=== PATIENT | female | born 1950 | race Caucasian/White ===

== ENCOUNTER 2021-01-27 10:22 | Inpatient (IN) ==
[2021-01-27] MEDS ORDERED: ONDANSETRON INJ 2 MG/ML 2 ML VIAL IV STA (10:30)
[2021-01-27] MEDS ORDERED: SODIUM CHLORIDE 0.9% 500 ML IV STA (10:30)
--- NOTE | 2021-01-27 10:36 | Emergency Department Note ---
Impression & Plan Tibial plateau fracture, left, Fall, Muscle tear, Hematoma of muscle ED Provider Note NAME: JASMEET NOLASCO AGE: 70 SEX: F : 1950 ARRIVES VIA: Ambulance INFORMANT: Patient, ED PROVIDER(S): Joseph Pearson DO CHIEF COMPLAINT: Knee pain HPI: The patient is a 70-year-old female who presents emergency department by ambulance for an evaluation of knee pain. The patient had a fall yesterday where she twisted her left knee under her body. She had no bony injury noted on radiographic studies and was able to go home. She has been trying to ambulate with a walker but this morning when she awoke swelling was significantly worsened and she had to call 911 because she was completely unable to bear weight. The patient did take the pain medication she was prescribed. She states the pain is moderate to severe. She denies any other injury. She did not strike her head. She currently only takes aspirin and no other blood thinners. The patient states otherwise she has been very compliant with her other outpatient medications. She denies any headache or back pain. She denies having any numbness in the leg. She states the swelling and ecchymosis have increased significantly since the injury. ROS: See above HPI for pertinent positives & negatives. A total of 10 systems reviewed and were otherwise negative. PAST MEDICAL HISTORY: See Below PAST SURGICAL HISTORY: See Below FAMILY HISTORY: See Below SOCIAL HISTORY: See Below HOME MEDICATIONS: See Below ALLERGIES: See Below VITALS: See Below PHYSICAL EXAMINATION: GENERAL: The patient is awake and alert. The patient is very anxious appearing appears to be uncomfortable. EYES: The conjunctivae are clear. The pupils are round and reactive. EARS, NOSE, MOUTH AND THROAT: The nose is without any evidence of any deformity. NECK: The neck is nontender and supple. RESPIRATORY: Normal respiratory effort is noted there is no evidence of wheezing rhonchi or rales CARDIOVASCULAR: Regular rate and rhythm noted there no murmurs rubs or gallops normal S1 normal S2. GASTROINTESTINAL: The abdomen is soft. Abdomen is nontender. MUSCULOSKELETAL/EXTREMITIES: There is significant ecchymosis and swelling on the medial aspect of the left knee. The patient has no instability to anterior or posterior drawer testing but there is significant pain with any range of motion testing of the knee. SKIN: There is no obvious evidence of any rash. No significant pedal edema was noted. Pulses are symmetric in both feet. NEUROLOGIC: Patient is awake alert and oriented x3. MEDICAL DECISION MAKING: The patient is a 70-year-old female who presented to the emergency department for an evaluation of leg pain. The patient was in our facility yesterday. I initially saw the patient and at that time she had x-rays as well as a CT of the knee that did not show any acute bony injury. She returns today with worsening symptoms and swelling. On my exam today the patient has very severe swelling of the knee with a large hematoma. The patient had repeat imaging which did show a tibial plateau fracture as well as a large muscle tear. The patient is not able to ambulate at this time. I discussed her condition with the on-call unassigned orthopedic group as well as the [facility]. They will evaluate the patient for further management and disposition. This does not appear to be surgical at this time but she may require further inpatient management as well as placement for rehab. Triage Nursing notes reviewed. Prior medical records reviewed Vital Signs: reviewed and remarkable for no significant abnormalities Differential diagnosis: Fracture, subluxation, dislocation, contusion, ligamentous injury, neurovascular, compartment syndrome, rhabdomyolysis, as well as other patho logies. ER treatment provided: See below Diagnostics interpreted by me: ECG: none Laboratory studies: As stated above and show below. Imaging studies: See below Consultation(s): 1235: I discussed his case with Dr. Andersen who is on-call for orthopedics. 1300: I discussed this case with Marcela who is on-call for the [facility] hospitalist group. They will evaluate the patient in the emergency department. Past Med/Surg History Medical History (Updated 01/27/21 @ 16:13 by Joseph Pearson DO) Anxiety CKD (chronic kidney disease), stage III Depression HLD (hyperlipidemia) Hypertension LVH (left ventricular hypertrophy) Surgical History History of cholecystectomy Family History (Updated 01/27/21 @ 14:53 by Chanel Yang PA-C) Sister Ovarian cancer Father Hypertension Social History (Updated 01/27/21 @ 14:53 by Chanel Yang PA-C) Smoking Status: Never smoker Hx Alcohol Use: No Hx Substance Use: No Preferred Language: Slovak Feels Safe at Home: Yes Allergies Allergies Allergy/AdvReac Type Severity Reaction Status Date / Time No Known Allergies Allergy Verified 01/27/21 10:58 Home Meds Home Medications Medication Instructions Recorded Confirmed aspirin 81 mg tablet,delayed 81 mg PO QAM 02/07/19 01/27/21 release atenolol 25 mg tablet 25 mg PO QAM 02/07/19 01/27/21 niacin 500 mg tablet,extended 500 mg PO HS 02/07/19 01/27/21 release amlodipine 10 mg tablet 10 mg PO DAILY 01/27/21 01/27/21 atorvastatin 40 mg tablet 40 mg PO PM 01/27/21 01/27/21 diclofenac sodium 1 % topical gel 4 g TOPICAL QID PRN 01/27/21 01/27/21 lorazepam 0.5 mg tablet 0.5 mg PO TID PRN 01/27/21 01/27/21 pantoprazole 20 mg tablet,delayed 20 mg PO DAILY 01/27/21 01/27/21 release sertraline 50 mg tablet 50 mg PO DAILY 01/27/21 01/27/21 Previous Rx's Medication Instructions Recorded oxycodone 5 mg tablet 5 mg PO Q6H PRN #20 tab 01/26/21 Results & Data (ED) Vital Signs Vital Signs - 24 hr 01/27/21 10:28 01/27/21 10:30 01/27/21 11:00 Temperature 37.1 C Temperature Source Oral Pulse Rate 71 76 67 Pulse Rate from SpO2 Sensor 70 68 Pulse Rhythm Regular Pulse Strength Normal Respiratory Rate 21 23 26 H Respiratory Effort / Characteristics Non-Labored Spontaneous Respiratory Depth Normal Respiratory Pattern Regular Blood Pressure 151/105 H 151/105 H 119/88 Blood Pressure Mean 120 120 98 Blood Pressure Position Lying Pulse Oximetry 95 95 94 Oxygen Delivery Method Room Air Sepsis Recent Fever Within 48 Hours No Sepsis New/Unexplained Change in Mental Status N/A Sepsis Action Taken by Nursing No Action Required 01/27/21 11:30 01/27/21 12:00 01/27/21 12:30 Temperature Temperature Source Pulse Rate 69 69 66 Pulse Rate from SpO2 Sensor 69 70 66 Pulse Rhythm Pulse Strength Respiratory Rate 21 19 19 Respiratory Effort / Characteristics Respiratory Depth Respiratory Pattern Blood Pressure 126/57 L 146/80 H 121/71 Blood Pressure Mean 80 102 87 Blood Pressure Position Pulse Oximetry 94 94 94 Oxygen Delivery Method Sepsis Recent Fever Within 48 Hours Sepsis New/Unexplained Change in Mental Status Sepsis Action Taken by Nursing 01/27/21 13:01 01/27/21 13:31 01/27/21 14:00 Temperature Temperature Source Pulse Rate 66 66 74 Pulse Rate from SpO2 Sensor 67 59 L 73 Pulse Rhythm Pulse Strength Respiratory Rate 19 19 19 Respiratory Effort / Characteristics Respiratory Depth Respiratory Pattern Blood Pressure 102/35 L 135/81 121/74 Blood Pressure Mean 57 99 89 Blood Pressure Position Pulse Oximetry 93 90 94 Oxygen Delivery Method Sepsis Recent Fever Within 48 Hours Sepsis New/Unexplained Change in Mental Status Sepsis Action Taken by Nursing 01/27/21 14:30 Temperature Temperature Source Pulse Rate 82 Pulse Rate from SpO2 Sensor 83 Pulse Rhythm Pulse Strength Respiratory Rate 19 Respiratory Effort / Characteristics Respiratory Depth Respiratory Pattern Blood Pressure 140/83 Blood Pressure Mean 102 Blood Pressure Position Pulse Oximetry 93 Oxygen Delivery Method Sepsis Recent Fever Within 48 Hours Sepsis New/Unexplained Change in Mental Status Sepsis Action Taken by [facility] Medications Current Medication List: was personally reviewed by me Laboratory Data Attestation: I reviewed the patient's lab results. Result diagrams: 01/27/21 10:45 01/27/21 10:45 Lab Results 01/27/21 01/27/21 01/27/21 Range/Units 10:45 10:45 10:51 WBC 7.83 (4.8-10.8) K/uL RBC 4.63 (4.2-5.4) M/uL Hgb 13.4 (12.0-16.0) g/dL POC Hgb 13.9 (12.0-16.0) g/dl Hct 41.0 (37-47) % POC Hct 41 (37-47) % MCV 88.6 (80-100) fL MCH 28.9 (25-34) pg MCHC 32.7 (32-36) g/dL RDW Std Deviation 45.4 (36.4-46.3) fL RDW Coeff of Jan 13.9 (11.5-14.5) % Plt Count 237 (130-400) K/uL MPV 9.6 (7.4-10.4) fL Immature Gran % (Auto) 0.3 % Neut % (Auto) 64.4 % Lymph % (Auto) 25.3 % [place] % (Auto) 7.4 % Eos % (Auto) 2.3 % Baso % (Auto) 0.3 % Neut # (Auto) 5.05 (1.4-6.5) K/uL Lymph # (Auto) 1.98 (1.2-3.4) K/uL [place] # (Auto) 0.58 (0.11-0.59) K/uL Eos # (Auto) 0.18 (0-0.5) K/uL Baso # (Auto) 0.02 (0-0.2) K/uL Immature Gran # (Auto) 0.02 (0.00-0.02) K/uL POC Sodium 140 (135-144) mmol/L Sodium 138 (136-145) mmol/L POC Potassium 4.0 (3.3-5.0) mmol/L Potassium (3.5-5.1) mmol/L POC Chloride 106 (101-112) mmol/L Chloride 108 H (98-107) mmol/L Carbon Dioxide 23 (21-32) mmol/L POC Total CO2 23 L (24-31) mmol/L Anion Gap 7.0 (3-11) POC Anion Gap 15.0 L (16-25) mmol/L POC BUN 16 (7-18) mg/dl BUN 15 (7-18) mg/dl Creatinine 1.00 (0.6-1.2) mg/dl POC Creatinine 0.9 (0.6-1.3) mg/dl Est Cr Clr Drug Dosing Not Reportable Est GFR ( Amer) 67.0 ml/min Est GFR (Non-Af Amer) 57.8 ml/min BUN/Creatinine Ratio 14.6 (10-20) Glucose 108 H (70-99) mg/dl POC Glucose (other) 108 H (70-99) mg/dl Calcium 9.2 (8.5-10.1) mg/dl POC Ioniz Calcium Tara 1.12 (1.12-1.32) mmol/l Total Bilirubin 0.9 (0.2-1) mg/dl AST (15-37) U/L ALT 26 (12-78) U/L Alkaline Phosphatase 124 H (45-117) U/L Total Protein 7.9 (6.4-8.2) gm/dl Albumin 3.8 (3.4-5.0) gm/dl Globulin 4.1 H (2.5-4.0) gm/dl Albumin/Globulin Ratio 0.9 (0.9-2) Lipase 118 (73-393) U/L COVID-19 Eval Order SARS-CoV-2 (PCR) (Negative) 01/27/21 01/27/21 Range/Units 11:36 11:36 WBC (4.8-10.8) K/uL RBC (4.2-5.4) M/uL Hgb (12.0-16.0) g/dL POC Hgb (12.0-16.0) g/dl Hct (37-47) % POC Hct (37-47) % MCV (80-100) fL MCH (25-34) pg MCHC (32-36) g/dL RDW Std Deviation (36.4-46.3) fL RDW Coeff of Jan (11.5-14.5) % Plt Count (130-400) K/uL MPV (7.4-10.4) fL Immature Gran % (Auto) % Neut % (Auto) % Lymph % (Auto) % [place] % (Auto) % Eos % (Auto) % Baso % (Auto) % Neut # (Auto) (1.4-6.5) K/uL Lymph # (Auto) (1.2-3.4) K/uL [place] # (Auto) (0.11-0.59) K/uL Eos # (Auto) (0-0.5) K/uL Baso # (Auto) (0-0.2) K/uL Immature Gran # (Auto) (0.00-0.02) K/uL POC Sodium (135-144) mmol/L Sodium (136-145) mmol/L POC Potassium (3.3-5.0) mmol/L Potassium (3.5-5.1) mmol/L POC Chloride (101-112) mmol/L Chloride (98-107) mmol/L Carbon Dioxide (21-32) mmol/L POC Total CO2 (24-31) mmol/L Anion Gap (3-11) POC Anion Gap (16-25) mmol/L POC BUN (7-18) mg/dl BUN (7-18) mg/dl Creatinine (0.6-1.2) mg/dl POC Creatinine (0.6-1.3) mg/dl Est Cr Clr Drug Dosing Est GFR ( Amer) ml/min Est GFR (Non-Af Amer) ml/min BUN/Creatinine Ratio (10-20) Glucose (70-99) mg/dl POC Glucose (other) (70-99) mg/dl Calcium (8.5-10.1) mg/dl POC Ioniz Calcium Tara (1.12-1.32) mmol/l Total Bilirubin (0.2-1) mg/dl AST (15-37) U/L ALT (12-78) U/L Alkaline Phosphatase (45-117) U/L Total Protein (6.4-8.2) gm/dl Albumin (3.4-5.0) gm/dl Globulin (2.5-4.0) gm/dl Albumin/Globulin Ratio (0.9-2) Lipase (73-393) U/L COVID-19 Eval Order Covid19 at [facility] SARS-CoV-2 (PCR) POSITIVE A* (Negative) Administered Medications Morphine Sulfate (Morphine Sulfate 4 Mg/Ml 1 Ml Carp\Vial) 4 mg IV Q15M PRN PRN Reason: Pain Stop: 02/10/21 10:29 Last Admin: 01/27/21 15:31 Dose: 4 mg Documented by: [id number] Admin: 01/27/21 11:05 Dose: 4 mg Documented by: [id number] Discontinued Medications Sodium Chloride (Nss) 500 mls @ 999 mls/hr IV .Q31M STA Stop: 01/27/21 11:00 Last Infusion: 01/27/21 12:23 Dose: 0 mls/hr Documented by: [id number] Admin: 01/27/21 11:05 Dose: 999 mls/hr Documented by: [id number] Ioversol (Optiray 320 125ml) 120 ml IV ONCE ONE Stop: 01/27/21 11:21 Last Admin: 01/27/21 11:20 Dose: 120 ml Documented by: [id number] Ondansetron HCl (Ondansetron Inj 2 Mg/Ml 2 Ml Vial) 4 mg IV NOW STA Stop: 01/27/21 10:31 Last Admin: 01/27/21 11:05 Dose: 4 mg Documented by: [id number] Imaging Data Radiologist's Impression: Lower Extremity CTA 01/27/21 10:[address] angiogram HISTORY: Left knee injury, w contrast only TECHNIQUE: Multiaxial CT images of the left lower extremity from the mid thigh through the mid left lower leg were performed following the intravenous administration of contrast to evaluate the major arterial structures. Maximal intensity projection images were also obtained. COMPARISON STUDY: Left knee CT 01/26/2021. FINDINGS: There is a subtle slightly depressed fracture within the posterior lip of the lateral tibial plateau. This demonstrates 1 mm of depression. This is best seen on axial image 242. The visualized femur, patella, and fibula are intact. The lateral tibial plateau fracture likely accounts for the small lipohemarthrosis. There is subcutaneous edema seen within the anterior knee with a probable ill-defined soft tissue contusion/hematoma within the anteromedial aspect of the knee. This measures approximately 5 cm in size. The distal com ponent of the vastus medialis muscle appears to contain intramuscular hematoma and is ill-defined with interdigitating fat. Therefore, this suggests high-grade intramuscular tear at the distal vastus medialis. However, the quadriceps tendon appears intact. The distal superficial femoral artery, popliteal artery, and visualized calf arteries are widely patent. No dissection or arterial extravasation to suggest a vascular injury. IMPRESSION: 1. Subtle slightly depressed fracture within the posterior lip of the lateral tibial plateau. 2. This likely accounts for the small lipohemarthrosis. 3. The distal component of the vastus medialis muscle appears to contain intramuscular hematoma and is ill-defined with interdigitating fat. Therefore, this suggests high-grade intramuscular tear/injury at the distal vastus medi suhail. However, the quadriceps tendon appears intact. 4. There is a surrounding soft tissue hematoma at the distal vastus medialis. 5. No evidence for a vascular injury. ACT 112: Negative or not required by law. Electronically signed by: Cayden Ramirez M.D. 01/27/2021 12:22 PM Discharge Plan Visit Data Chief Complaint: Knee Injury/Pain Stated Complaint: KNEE INJURY ED Provider: Joseph Pearson Discharge Problem: Tibial plateau fracture, left, Fall, Muscle tear, Hematoma of muscle Patient Disposition: Admitted As Inpatient Forms Stand Alone Forms: [facility] Prescriptions Prescriptions: No Action atenolol 25 mg tablet 25 mg PO QAM RF: 0 aspirin 81 mg Tablet,Delayed Release (Dr/Ec) 81 mg PO QAM RF: 0 niacin 500 mg Tablet Extended Release 500 mg PO HS RF: 0 oxycodone 5 mg tablet 5 mg PO Q6H PRN (Reason: pain) Qty: 20 RF: 0 atorvastatin 40 mg tablet 40 mg PO PM RF: 0 pantoprazole 20 mg tablet,delayed release (DR/EC) 20 mg PO DAILY RF: 0 lorazepam 0.5 mg tablet 0.5 mg PO TID PRN (Reason: Anxiety) RF: 0 amlodipine 10 mg tablet 10 mg PO DAILY RF: 0 sertraline 50 mg tablet 50 mg PO DAILY RF: 0 diclofenac sodium 1 % gel 4 g TOPICAL QID PRN (Reason: Pain) RF: 0 Referrals Referrals: Karley Sutherland DO [Primary Care Provider] -
[2021-01-27 10:56] LABS: Basophils # (auto) 0.02 K/uL (0-0.2); Basophils % (auto) 0.3 %; Eosinophils # (auto) 0.18 K/uL (0-0.5); Eosinophils % (auto) 2.3 %; Hemoglobin 13.4 g/dL (12.0-16.0); Immature Granulocytes # (auto) 0.02 K/uL (0.00-0.02); Immature Granulocytes % (auto) 0.3 %; Lymphocytes # (auto) 1.98 K/uL (1.2-3.4); Lymphocytes % (auto) 25.3 %; Mean Corpuscular Hemoglobin 28.9 pg (25-34); Mean Corpuscular Hgb Conc 32.7 g/dL (32-36); Mean Corpuscular Volume 88.6 fL (80-100); Mean Platelet Volume 9.6 fL (7.4-10.4); Monocytes # (auto) 0.58 K/uL (0.11-0.59); Monocytes % (auto) 7.4 %; Neutrophils # (auto) 5.05 K/uL (1.4-6.5); Neutrophils % (auto) 64.4 %; Platelet Count 237 K/uL (130-400); RDW Coefficient of Variation 13.9 % (11.5-14.5); RDW Standard Deviation 45.4 fL (36.4-46.3); Red Blood Count 4.63 M/uL (4.2-5.4); White Blood Count 7.83 K/uL (4.8-10.8)
[2021-01-27 11:04] LABS: iSTAT Creatinine 0.9 mg/dl (0.6-1.3); iSTAT Hemoglobin 13.9 g/dl (12.0-16.0); iSTAT Ionized Calcium 1.12 mmol/l (1.12-1.32)
[2021-01-27] MEDS: MoRPHine SULFATE 4 MG/ML 1 ML CARP\\VIAL IV PRN ×2 (11:05→15:31)
[2021-01-27] MEDS ORDERED: OPTIRAY 320 125ml IV ONE (11:20)
[2021-01-27 11:22] LABS: Alanine Aminotransferase 26 U/L (12-78); Albumin Level 3.8 gm/dl (3.4-5.0); BUN Creatinine Ratio 14.6 (10-20); Blood Urea Nitrogen 15 mg/dl (7-18); Calcium 9.2 mg/dl (8.5-10.1); Carbon Dioxide 23 mmol/L (21-32); Chloride 108 mmol/L (98-107); Est GFR (Non-African American) 57.8 ml/min; Glucose 108 mg/dl (70-99); Lipase 118 U/L (73-393); Sodium 138 mmol/L (136-145)
[2021-01-27 11:27] LABS: Albumin Globulin Ratio 0.9 (0.9-2); Alkaline Phosphatase 124 U/L (45-117); Bilirubin,Total 0.9 mg/dl (0.2-1); Globulin 4.1 gm/dl (2.5-4.0); Total Protein 7.9 gm/dl (6.4-8.2)
--- NOTE | 2021-01-27 12:23 | CT Scan Report ---
Left lower extremity CT angiogram HISTORY: Left knee injury, w contrast only TECHNIQUE: Multiaxial CT images of the left lower extremity from the mid thigh through the mid left l ower leg were performed following the intravenous administration of contrast to evaluate the major ar terial structures. Maximal intensity projection images were also obtained. COMPARISON STUDY: Left knee CT 01/26/2021. FINDINGS: There is a subtle slightly depressed fracture within the posterior lip of the lateral tibia l plateau. This demonstrates 1 mm of depression. This is best seen on axial image 242. The visualized femur, patella, and fibula are intact. The lateral tibial plateau fracture likely accounts for the s mall lipohemarthrosis. There is subcutaneous edema seen within the anterior knee with a probable ill- defined soft tissue contusion/hematoma within the anteromedial aspect of the knee. This measures appr oximately 5 cm in size. The distal component of the vastus medialis muscle appears to contain intramu scular hematoma and is ill-defined with interdigitating fat. Therefore, this suggests high-grade intr amuscular tear at the distal vastus medialis. However, the quadriceps tendon appears intact. The dist al superficial femoral artery, popliteal artery, and visualized calf arteries are widely patent. No d issection or arterial extravasation to suggest a vascular injury. IMPRESSION: 1. Subtle slightly depressed fracture within the posterior lip of the lateral tibial plateau. 2. This likely accounts for the small lipohemarthrosis. 3. The distal component of the vastus medialis muscle appears to contain intramuscular hematoma and i s ill-defined with interdigitating fat. Therefore, this suggests high-grade intramuscular tear/injury at the distal vastus medialis. However, the quadriceps tendon appears intact. 4. There is a surrounding soft tissue hematoma at the distal vastus medialis. 5. No evidence for a vascular injury. ACT 112: Negative or not required by law. Electronically signed by: Cayden Ramirez M.D. 01/27/2021 12:22 PM
--- NOTE | 2021-01-27 13:58 | History & Physical Report ---
Date of Service January 27, 2021 Assessment & Plan (1) Fall: (2) Tibial plateau fracture, left: Plan: Left Knee hematoma, intramuscular injury, possible tear Pt is 70 y/o F With PMH HTN, dyslipidemia, depression, CKD III, LVH presented to ER with complaint of slip and fall yesterday and left knee pain. [facility] ER on 01/26/21 x-ray left knee showed soft tissue swelling and effusion without noted fracture. CT Left knee: 1. Subtle slightly depressed fracture within the posterior lip of the lateral tibial plateau. 2. This likely accounts for the small lipohemarthrosis. 3. The distal component of the vastus medialis muscle appears to contain intramuscular hematoma and is ill-defined with interdigitating fat. Therefore, this suggests high-grade intramuscular tear/injury at the distal vastus medialis. However, the quadriceps tendon appears intact. 4. There is a surrounding soft tissue hematoma at the distal vastus medialis. 5. No evidence for a vascular injury. Knee immobilizer Pain control Ortho consult PT/OT eval after ortho consult (3) Lab test positive for detection of COVID-19 virus: Plan: Denies cough, SOB, CP, N/V/D, Fever/chills. O2 sat: 94% on room air Reports 2 doses COVID-19 Vaccine Today positive COVID-19 PCR Isolation precautions Monitor Obtain baseline CRP, Ferritin, D-dimer (4) Hypertension: Plan: Continue atenolol, amlodipine (5) HLD (hyperlipidemia): Plan: Continue atorvastatin (6) CKD (chronic kidney disease), stage III: Plan: Cr: 1.0. Baseline Cr: 1.1 Monitor renal functions, avoid nephrotoxic agents when possible (7) Anxiety: Plan: Continue sertraline Hold prn lorazepam while on pain medications DVT Prophylaxis -SCDs for now, plan to start Lovenox tomorrow if no surgical intervention Full Code as per discussion with pt, however reports if poor prognosis would not want maintained on life support Follows with Dr Sutherland for routine care Pt was seen and care coordinated with Dr Seaman. See addendum History of Present Illness Chief Complaint: Fall, Knee pain Primary Care Provider: Karley Sutherland, Pt is 70 y/o F With PMH HTN, dyslipidemia, depression, CKD III, LVH presented to ER with complaint of fall yesterday and left knee pain. Patient reports yesterday was scrubbing and she slipped on wet floor causing her to have a twisting injury to left leg and fall. She was seen at [facility] ER yesterday and had x-ray left knee showed soft tissue swelling and effusion without noted fracture. Patient states taking oxycodone that was prescribed to her yesterday however having continued pain and is unable to ambulate. Has been trying to use a walker at home this morning however is unable to secondary to increased pain and inability to bend knee. States left knee with ecchymosis and edema. Denies any numbness or tingling of lower extremity or foot. Patient denies hitting head or LOC with fall. She denies any other injury with fall. Patient reports had 2 doses COVID-19 vaccination in September and October 2020. She denies any cough, shortness of breath, chest pain, fever, chills, nausea, vomiting, diarrhea. She is unaware of any COVID-19 contacts. Reports grandson lives with her and had URI symptoms recently but was not tested for COVID-19. Denies BRIDGES, dizziness, syncope, vision changes, neck pain, orthopnea, palpitations, sore throat, choking, otalgia, rhinorrhea, abdominal pain, paresthesias, weakness, other extremity edema, rashes, urinary symptoms. Today in ER CT Left knee: 1. Subtle slightly depressed fracture within the posterior lip of the lateral tibial plateau. 2. This likely accounts for the small lipohemarthrosis. 3. The distal component of the vastus medialis muscle appears to contain intramuscular hematoma and is ill-defined with interdigitating fat. Therefore, this suggests high-grade intramuscular tear/injury at the distal vastus medialis. However, the quadriceps tendon appears intact. 4. There is a surrounding soft tissue hematoma at the distal vastus medialis. 5. No evidence for a vascular injury. Allergies Allergy/AdvReac Type Severity Reaction Status Date / Time No Known Allergies Allergy Verified 01/27/21 10:58 Home Medications Medication Instructions Recorded Confirmed Type aspirin 81 mg tablet,delayed 81 mg PO QAM 02/07/19 01/27/21 History release atenolol 25 mg tablet 25 mg PO QAM 02/07/19 01/27/21 History niacin 500 mg tablet,extended 500 mg PO HS 02/07/19 01/27/21 History release oxycodone 5 mg tablet 5 mg PO Q6H PRN #20 tab 01/26/21 01/27/21 Rx amlodipine 10 mg tablet 10 mg PO DAILY 01/27/21 01/27/21 History atorvastatin 40 mg tablet 40 mg PO PM 01/27/21 01/27/21 History diclofenac sodium 1 % topical gel 4 g TOPICAL QID PRN 01/27/21 01/27/21 History lorazepam 0.5 mg tablet 0.5 mg PO TID PRN 01/27/21 01/27/21 History pantoprazole 20 mg tablet,delayed 20 mg PO DAILY 01/27/21 01/27/21 History release sertraline 50 mg tablet 50 mg PO DAILY 01/27/21 01/27/21 History Past Med/Surg History Medical History (Updated 01/27/21 @ 16:13 by Joseph Pearson DO) Anxiety CKD (chronic kidney disease), stage III Depression HLD (hyperlipidemia) Hypertension LVH (left ventricular hypertrophy) Surgical History History of cholecystectomy Family History (Updated 01/27/21 @ 14:53 by Chanel Yang PA-C) Sister Ovarian cancer Father Hypertension Social History (Updated 01/27/21 @ 14:53 by Chanel Yang PA-C) Smoking Status: Never smoker Hx Alcohol Use: No Hx Substance Use: No Preferred Language: [place] Feels Safe at Home: Yes Review of Systems Review of Systems: All systems reviewed & are unremarkable except as noted in HPI & below Physical Exam Physical Exam: General: no distress, obese Head: normocephalic, atraumatic Eyes: PERRL, EOM's intact, conjunctiva non-injected, anicteric ENT: normal inspection external ears, nose, mucous membranes moist Neck: supple, trachea midline Lungs: clear, no respiratory distress, no wheezing/rhonchi/rales CV: RRR, no murmur, no pretibial edema Abd: normal BS, soft, non-tender Ext: LLE: +ecchymosis and edema to left knee, +tenderness to palpation entire anterior knee, no active or passive ROM tested secondary pt's increased pain and unwillingness secondary to pain, distal pulses palpable. no cyanosis, no calf tenderness Neuro: A&O x 3, no focal deficits noted, normal affect Skin: warm, dry Results & Data Results & Data ([facility]) Vital Signs (Past 12 Hours) Vital Signs Temp Pulse Resp BP Pulse Ox 01/27/21 13:31 66 19 135/81 90 01/27/21 13:01 66 19 102/35 L 93 01/27/21 12:30 66 19 121/71 94 01/27/21 12:00 69 19 146/80 H 94 01/27/21 11:30 69 21 126/57 L 94 01/27/21 11:00 67 26 H 119/88 94 01/27/21 10:30 37.1 C 76 23 151/105 H 95 01/27/21 10:28 71 21 151/105 H 95 Laboratory Results Short CBC 01/27/21 Range/Units 10:45 WBC 7.83 (4.8-10.8) K/uL Hgb 13.4 (12.0-16.0) g/dL Hct 41.0 (37-47) % Plt Count 237 (130-400) K/uL BMP 01/27/21 10:45 Sodium 138 Potassium Chloride 108 H Carbon Dioxide 23 BUN 15 Creatinine 1.00 Glucose 108 H Calcium 9.2 Liver Function 01/27/21 Range/Units 10:45 Total Bilirubin 0.9 (0.2-1) mg/dl AST (15-37) U/L ALT 26 (12-78) U/L Alkaline Phosphatase 124 H (45-117) U/L Albumin 3.8 (3.4-5.0) gm/dl Diagnostic Findings Lower Extremity CTA 01/27/21 10:[address] angiogram HISTORY: Left knee injury, w contrast only TECHNIQUE: Multiaxial CT images of the left lower extremity from the mid thigh through the mid left lower leg were performed following the intravenous administration of contrast to evaluate the major arterial structures. Maximal intensity projection images were also obtained. COMPARISON STUDY: Left knee CT 01/26/2021. FINDINGS: There is a subtle slightly depressed fracture within the posterior lip of the lateral tibial plateau. This demonstrates 1 mm of depression. This is best seen on axial image 242. The visualized femur, patella, and fibula are intact. The lateral tibial plateau fracture likely accounts for the small lipohemarthrosis. There is subcutaneous edema seen within the anterior knee with a probable ill-defined soft tissue contusion/hematoma within the anteromedial aspect of the knee. This measures approximately 5 cm in size. The distal component of the vastus medialis muscle appears to contain intramuscular hematoma and is ill-defined with interdigitating fat. Therefore, this suggests high-grade intramuscular tear at the distal vastus medialis. However, the quadriceps tendon appears intact. The distal superficial femoral artery, popliteal artery, and visualized calf arteries are widely patent. No dissection or arterial extravasation to suggest a vascular injury. IMPRESSION: 1. Subtle slightly depressed fracture within the posterior lip of the lateral tibial plateau. 2. This likely accounts for the small lipohemarthrosis. 3. The distal component of the vastus medialis muscle appears to contain intramuscular hematoma and is ill-defined with interdigitating fat. Therefore, this suggests high-grade intramuscular tear/injury at the distal vastus medialis. However, the quadriceps tendon appears intact. 4. There is a surrounding soft tissue hematoma at the distal vastus medialis. 5. No evidence for a vascular injury. ACT 112: Negative or not required by law. Electronically signed by: Cayden Ramirez M.D. 01/27/2021 12:22 PM Supervising Physician Co-Signing Physician Notes History and physical exam performed by me. History notable for 70-year-old woman with history of hypertension, dyslipidemia, depression, CKD 3, LVH who initially presented to the ER yesterday after a fall and left knee pain. X-ray showed soft tissue swelling and effusion without noted fracture. Was discharged home. Patient represented again today due to difficulty ambulating, persistent pain. Physical exam notable for right knee pain with immobilizer on Lab work grossly unremarkable except for CRP of 2.1 and alkaline phosphatase of 124 Covid test was positive CT of the left knee showed subtle slightly depressed fracture within the posterior lip of the lateral tibial plateau,*component of vastus medialis muscle appears to contain intramuscular hematoma. Fall Left lateral tibial plateau fracture Positive Covid 19 test Continue knee immobilizer Pain control Follow-up Ortho evaluation and recommendation. Patient denies any respiratory symptoms. Currently on room air. No need for Covid specific therapies. Patient reports completing COVID-19 vaccination. Chest x-ray does not show any active disease in the chest. Will monitor Agree with other plans as detailed by Chanel Yang PA-C (1) Fall Encounter type: initial encounter Qualified Code(s): W19.XXXA - Unspecified fall, initial encounter
[2021-01-27 16:48] LABS: C Reactive Protein 2.01 mg/dl (0-0.29); Ferritin 258.1 ng/ml (8-388)
--- NOTE | 2021-01-27 17:19 | XRay Report ---
SINGLE VIEW CHEST CLINICAL HISTORY: Preoperative examination. Tibial fracture. FINDINGS: An AP, portable, upright chest radiograph is obtained. No prior studies are available for c omparison at the time of dictation. The cardiomediastinal silhouette is unremarkable noting mild ath erosclerotic calcification of the thoracic aorta. The lungs and pleural spaces are clear. No pneumoth orax is seen. The skeletal structures are osteopenic. The bony thorax is grossly intact. Cholecystect dagmar clips are noted in the right upper quadrant. IMPRESSION: No active disease in the chest. ACT 112: Negative or not required by law. Electronically signed by: Bradley Christopher M.D. 01/27/2021 5:17 PM
[2021-01-27 18:32] LABS: D Dimer 1620 ug/L FEU (0-500)
[2021-01-27] MEDS ORDERED: ACETAMINOPHEN 325 MG TAB PO PRN (21:04)
[2021-01-27] MEDS ORDERED: SODIUM CHLORIDE 0.9% 1000ML 1,000 ML IV SCH (21:04)
[2021-01-27] MEDS ORDERED: POLYETHYLENE (MIRALAX) 17 GM PACK PO PRN (21:04)
[2021-01-27] MEDS ORDERED: ONDANSETRON INJ 2 MG/ML 2 ML VIAL IV PRN (21:04)
[2021-01-27] MEDS ORDERED: oxyCODONE HCL IR 5 MG TAB (IMMEDIATE RELEASE) PO PRN (21:04)
[2021-01-27] MEDS ORDERED: MAGNESIUM HYDROXIDE SUSP 30 ML UDC PO PRN (21:04)
[2021-01-27] MEDS ORDERED: MoRPHine SULFATE 4 MG/ML 1 ML CARP\\VIAL IV PRN (21:04)
[2021-01-27] MEDS: ATENOLOL 25 MG TABLET PO SCH (23:50)
[2021-01-27] MEDS: amLODIPine BESYLATE 5 MG TAB PO SCH (23:50)
[2021-01-27] MEDS: ATORVASTATIN 40 MG TAB PO SCH (23:51)
--- NOTE | 2021-01-28 05:53 | Electrocardiogram Report ---
Test Reason : Blood Pressure : / mmHG Vent. Rate : 082 BPM Atrial Rate : 082 BPM P-R Int : 158 ms QRS Dur : 078 ms QT Int : 372 ms P-R-T Axes : 054 -14 014 degrees QTc Int : 434 ms Poor data quality, interpretation may be adversely affected Normal sinus rhythm Moderate voltage criteria for LVH, may be normal variant Nonspecific ST and T wave abnormality Abnormal ECG When compared with ECG of 06-NOV-2013 11:21, Nonspecific T wave abnormality now evident in Anterolateral leads Confirmed by Floyd Randolph ([id number]) on 01/28/2021 5:53:03 AM Referred By: REFERRED SELF Confirmed By:Floyd Randolph
[2021-01-28] MEDS ORDERED: OPTIRAY 320 125ml IV ONE (07:53)
[2021-01-28 07:56] LABS: Hematocrit (blood only) 34.2 % (37-47); Hemoglobin 10.9 g/dL (12.0-16.0); Mean Corpuscular Hemoglobin 28.6 pg (25-34); Mean Corpuscular Hgb Conc 31.9 g/dL (32-36); Mean Corpuscular Volume 89.8 fL (80-100); Mean Platelet Volume 9.6 fL (7.4-10.4); Platelet Count 219 K/uL (130-400); RDW Coefficient of Variation 14.1 % (11.5-14.5); RDW Standard Deviation 46.5 fL (36.4-46.3); Red Blood Count 3.81 M/uL (4.2-5.4); White Blood Count 6.82 K/uL (4.8-10.8)
[2021-01-28 08:26] LABS: Albumin Level 2.8 gm/dl (3.4-5.0); BUN Creatinine Ratio 15.4 (10-20); Calcium 8.6 mg/dl (8.5-10.1); Creatinine Clr Calc Pharmacy 61.7 ml/min; Est GFR (African American) 85.2 ml/min; Est GFR (Non-African American) 73.5 ml/min; Potassium 4.2 mmol/L (3.5-5.1)
[2021-01-28 08:35] LABS: Albumin Globulin Ratio 0.7 (0.9-2); Bilirubin,Total 0.6 mg/dl (0.2-1); Globulin 3.8 gm/dl (2.5-4.0); Total Protein 6.6 gm/dl (6.4-8.2)
--- NOTE | 2021-01-28 09:12 | CT Scan Report ---
CT ANGIOGRAM OF THE CHEST CLINICAL HISTORY: PE COMPARISON STUDY: No previous studies for comparison. TECHNIQUE: Following the IV administration of 120 mL of Optiray, CT angiogram of the thorax was perfo rmed from the thoracic inlet to the lung bases utilizing the pulmonary embolus protocol. Images are r eviewed in the axial, sagittal, and coronal planes. IV contrast was administered without complication . MIP imaging was performed. A dose lowering technique was utilized adhering to the principles of AL CATHLEEN. CT DOSE: 571.96 mGycm FINDINGS: There is adequate opacification within main pulmonary artery. No definite pulmonary embolus is seen within main, lobar and segmental branches of the pulmonary tiffanie ry however evaluation is slightly limited due to respiratory motion artifact. Main pulmonary artery i s normal in caliber. Mild dilatation of the right pulmonary artery could be seen in pulmonary hyperte nsion. No evidence of right heart strain. Four-chamber cardiomegaly seen without pericardial effusion. Questionable focal area of myocardial th inning is seen at the cardiac apex (2/54) and might represent scarring. Visualized portion of thyroid gland shows no evidence of focal lesions. Mild thickening of distal esophageal wall is seen. Small hiatal hernia is demonstrated. There is no axial, supra clavicle or internal mammary lymphadenopathy seen. Slightly prominent subcar inal lymph node is seen measuring 1.0 cm in short axis. There is mild soft tissue attenuation intersp ersed with fat is seen within anterior mediastinum and could represent thymic remnant versus other et iology. There was no evidence of thoracic aortic dilatation. Tracheobronchial tree is patent. This study was acquired during partial expiratory phase. No infiltrates or consolidative lesions are seen. Minimal atelectasis is seen at dependent portion of the left lower lobe. No pleural effusion demonstrated. -8 mm nodule is seen at subpleural aspect of the left lower lobe (4/76) No other pulmonary nodules are seen however evaluation of pulmonary parenchyma is limited due to ros on artifact. Limited evaluation of upper abdominal viscera shows nonobstructive calculi within the partially visua lized right and left renal pelvises (largest on the left) and nodularity of bilateral adrenal glands. Evaluation is suboptimal due to motion artifact. Osseous structures: Mild diffuse osteopenia and degenerative changes of the spine. No definite aggres sive osseous lesions are seen. IMPRESSION: 1. No evidence of the pulmonary embolus within main, lobar and segmental branches of the pulmonary a rtery however evaluation is suboptimal due to motion artifact. No evidence of right heart strain. 2. Slightly dilated right pulmonary artery which could be seen in pulmonary hypertension. 3. Four-chamber cardiomegaly. Questionable focal thickening of myocardium at its apex which might re present sequela from prior ischemia/infarct. Please correlate above-mentioned findings with prior his tory and possible cardiac evaluation. Overall evaluation is suboptimal due to nongated technique. 4. No infiltrates or consolidative lesions. 5. 8 mm subpleural pulmonary nodule within left lower lobe. Follow-up evaluation in 3 months with no ncontrast CT of the chest on nonemergency basis is recommended per Fleischner Society guidelines. 6. Bilateral nonobstructive nephrolithiasis within partially visualized right and left kidney. Subop timal evaluation due to nondedicated exam and motion artifact. 7. The rest of findings as above. Please refer to below summary of Fleischner criteria recommendations for follow-up of incidental CT n odules (Cammie Valdes, Guidelines for management of small pulmonary nodules detected on CT scans: A sta tement from the Fleischner Society, Radiology 237: [phone].) SOLID NODULES Solitary nodule size: <6 mm * low risk patients: no follow-up needed * high risk patients: optional CT at 12 months Solitary nodule size: 6-8 mm * low risk patients: follow-up at 6-12 months, then consider further follow-up at 18-24 months * high risk patients: initial follow-up CT at 6-12 months and then at 18-24 months if no change Solitary nodule size: >8 mm * either low or high risk patients - consider follow-up CT at 3 months, and/or CT-PET, and/or biopsy Multiple nodules size: <6 mm * low risk patients: no routine follow-up * high risk patients: optional CT at 12 months Multiple nodules size: 6-8 mm * low risk patients: follow-up at 3-6 months, then consider further follow-up at 18-24 months * high risk patients: follow-up at 3-6 months, then at 18-24 months if no change Multiple nodules size: >8 mm * low risk patients: follow-up at 3-6 months, then consider further follow-up at 18-24 months * high risk patients: follow-up at 3-6 months, then at 18-24 months if no change Note: newly detected indeterminate nodule in persons 35 years of age or older. * low risk patients: minimal or absent history of smoking and/or other known risk factors * high risk patients: history of smoking or of other known risk factors (e.g. first degree relative with lung cancer, or exposure to asbestos, radon, uranium) * if a nodule up to 8 mm is partly solid or is ground glass further follow-up is required after 24 m onths to exclude possible slow growing adenocarcinoma (RIDDHI) SUBSOLID NODULES Solitary pure ground-glass nodule * nodule size <6 mm - no CT follow-up required * nodule size >=6 mm - follow-up CT at 6-12 months, then every 2 years until 5 years Solitary part-solid nodule * nodule size <6 mm - no CT follow-up required * nodule size >=6 mm - follow-up CT at 3-6 months. If unchanged, and solid component remains <6 mm, then annual follow-up for 5 years Multiple subsolid nodules * nodule size <6 mm - follow-up CT at 3-6 months, consider further follow-up at 2 and 4 years if sta ble * nodule size >=6 mm - follow-up CT at 3-6 months, subsequent management based on the most suspiciou s nodule(s) ACT 112: Positive. There are findings on this exam that require communication between the performing entity and the patient following Patient Test Result Information Act ([place] Act 112) guidelines. The above report was generated using voice recognition software. It may contain grammatical, syntax o r spelling errors. Electronically signed by: Radha Russell DO 01/28/2021 9:10 AM
[2021-01-28] MEDS: SERTRALINE HCL 50 MG TABLET PO SCH (10:21)
[2021-01-28] MEDS: PANTOprazole 40 MG TAB PO SCH (10:22)
[2021-01-28] MEDS ORDERED: oxyCODONE HCL IR 5 MG TAB (IMMEDIATE RELEASE) PO PRN (10:37)
--- NOTE | 2021-01-28 10:37 | Hospitalist Progress Note ---
Date of Service January 28, 2021 Assessment & Plan (1) Fall: (2) Tibial plateau fracture, left: Plan: Left Knee hematoma, intramuscular injury, possible tear 70 y/o F With PMH HTN, dyslipidemia, depression, CKD III, LVH presented to ER with complaint of slip and fall yesterday and left knee pain. [facility] ER on 01/26/21 x-ray left knee showed soft tissue swelling and effusion without noted fracture. CT Left knee: 1. Subtle slightly depressed fracture within the posterior lip of the lateral tibial plateau. 2. This likely accounts for the small lipohemarthrosis. 3. The distal component of the vastus medialis muscle appears to contain intramuscular hematoma and is ill-defined with interdigitating fat. Therefore, this suggests high-grade intramuscular tear/injury at the distal vastus medialis. However, the quadriceps tendon appears intact. 4. There is a surrounding soft tissue hematoma at the distal vastus medialis. 5. No evidence for a vascular injury. Knee immobilizer Pain controlled. Awaiting Ortho consult PT/OT eval after ortho consult (3) Lab test positive for detection of COVID-19 virus: Plan: Reports 2 doses COVID-19 Vaccine Denied any symptoms Currently on room air. D-dimer elevated. CTPA negative for PE (4) Hypertension: Plan: Continue atenolol, amlodipine (5) HLD (hyperlipidemia): Plan: Continue atorvastatin (6) CKD (chronic kidney disease), stage III: Plan: Cr: 0.82. Baseline Cr: 1.1 Monitor renal functions, avoid nephrotoxic agents when possible (7) Anxiety: Plan: Continue sertraline Hold prn lorazepam while on pain medications DVT Prophylaxis - Lovenox sq if no surgical intervention Full Code as per discussion with pt, however reports if poor prognosis would not want maintained on life support Follows with Dr Sutherland for routine care Admission and Anticipated Discharge Date Admission Date: January 27, 2021 Subjective Close [id number] woman with history of hypertension, dyslipidemia, depression, CKD 3, LVH who initially presented to the ER yesterday after a fall and left knee pain. X-ray showed soft tissue swelling and effusion without noted fracture. Was discharged home. Patient represented again on 01/27 due to difficulty ambulating, persistent pain. Found to have left tibial plateau fracture and COVID test came back positive Patient has not found this monitor. Reports pain is is better controlled. Still reports left knee pain with activity. Denies any fevers, chills, nausea, vomiting Denies any cough, chest pain, shortness of breath Denies any abdominal pain, diarrhea. Last bowel movement was 2 days ago. Denies any dysuria, frequency, urgency Review of Systems Constitutional: no fever, no chills and no fatigue Eyes: no problem reported Ear, Nose, Mouth, Throat: no problem reported Respiratory: no cough, no chest congestion, no dyspnea and no dyspnea on exertion Cardiovascular: no chest pain, no dyspnea, no dyspnea on exertion, no orthopnea and no palpitations Gastrointestinal: no abdominal pain, no nausea and no vomiting Genitourinary: no dysuria, no difficulty urinating and no urinary frequency Musculoskeletal: Left knee pain Neurologic: no dizziness, no headache(s) and no confusion Psychiatric: no depression and no irritability Physical Exam Constitutional: + well hydrated; no acute distress Eyes: PERRL, conjunctivae normal, anicteric sclerae ENMT: external ear and nose normal, oropharynx normal Respiratory: normal respiratory effort, lungs clear to auscultation Cardiovascular: RRR, no murmur, no edema Gastrointestinal (Abdomen): normal bowel sounds, soft, nontender, no hepatosplenomegaly Musculoskeletal: Left knee immobilizer in place Neurologic: PERRL, EOMI, accommodation nl, no face palsy, no dysarthria Psychiatric: A+Ox3, euthymic affect Results & Data Results & Data ([facility]) Vital Signs (Past 12 Hours) Vital Signs Temp Pulse Pulse Resp BP Pulse Ox 01/28/21 08:13 36.7 C 65 18 127/79 95 01/28/21 04:48 37.0 C 71 17 131/83 97 01/27/21 23:44 36.8 C 78 17 150/91 H 93 Laboratory Results Abnormal lab results 01/27/21 01/27/21 01/27/21 Range/Units 10:45 10:45 10:51 RBC (4.2-5.4) M/uL Hgb (12.0-16.0) g/dL Hct (37-47) % MCHC (32-36) g/dL RDW Std Deviation (36.4-46.3) fL D-Dimer (0-500) ug/L FEU Chloride 108 H (98-107) mmol/L POC Total CO2 23 L (24-31) mmol/L POC Anion Gap 15.0 L (16-25) mmol/L Glucose 108 H (70-99) mg/dl POC Glucose (other) 108 H (70-99) mg/dl Alkaline Phosphatase 124 H (45-117) U/L C-Reactive Protein 2.01 H (0-0.29) mg/dl Albumin (3.4-5.0) gm/dl Globulin 4.1 H (2.5-4.0) gm/dl Albumin/Globulin Ratio (0.9-2) SARS-CoV-2 (PCR) (Negative) 01/27/21 01/27/21 01/28/21 Range/Units 11:36 17:47 07:23 RBC 3.81 L (4.2-5.4) M/uL Hgb 10.9 L (12.0-16.0) g/dL Hct 34.2 L (37-47) % MCHC 31.9 L (32-36) g/dL RDW Std Deviation 46.5 H (36.4-46.3) fL D-Dimer 1620 H* (0-500) ug/L FEU Chloride (98-107) mmol/L POC Total CO2 (24-31) mmol/L POC Anion Gap (16-25) mmol/L Glucose (70-99) mg/dl POC Glucose (other) (70-99) mg/dl Alkaline Phosphatase (45-117) U/L C-Reactive Protein (0-0.29) mg/dl Albumin (3.4-5.0) gm/dl Globulin (2.5-4.0) gm/dl Albumin/Globulin Ratio (0.9-2) SARS-CoV-2 (PCR) POSITIVE A* (Negative) 01/28/21 Range/Units 07:23 RBC (4.2-5.4) M/uL Hgb (12.0-16.0) g/dL Hct (37-47) % MCHC (32-36) g/dL RDW Std Deviation (36.4-46.3) fL D-Dimer (0-500) ug/L FEU Chloride 110 H (98-107) mmol/L POC Total CO2 (24-31) mmol/L POC Anion Gap (16-25) mmol/L Glucose (70-99) mg/dl POC Glucose (other) (70-99) mg/dl Alkaline Phosphatase (45-117) U/L C-Reactive Protein (0-0.29) mg/dl Albumin 2.8 L (3.4-5.0) gm/dl Globulin (2.5-4.0) gm/dl Albumin/Globulin Ratio 0.7 L (0.9-2) SARS-CoV-2 (PCR) (Negative) (1) Fall Encounter type: initial encounter Qualified Code(s): W19.XXXA - Unspecified fall, initial encounter (2) Tibial plateau fracture, left Encounter type: subsequent encounter Fracture healing: with routine healing Fracture type: closed Qualified Code(s): S82.142D - Displaced bicondylar fracture of left tibia, subsequent encounter for closed fracture with routine healing
[2021-01-28] MEDS: ACETAMINOPHEN 325 MG TAB PO SCH ×3 (11:48→22:04)
[2021-01-28] MEDS: DOCUSATE SODIUM/SENNA 50/8.6MG TAB PO SCH (11:48)
[2021-01-28] MEDS: ASPIRIN 81 MG ECTAB PO SCH (14:25)
[2021-01-28] MEDS: amLODIPine BESYLATE 5 MG TAB PO SCH (14:25)
[2021-01-28] MEDS: ENOXAPARIN INJ 40 MG/0.4 ML SYR SQ SCH (14:25)
[2021-01-28] MEDS: ATENOLOL 25 MG TABLET PO SCH (14:26)
[2021-01-28 19:25] LABS: Appearance Urine Clear (Clear); Bacteria Urine Automated 1+ (Negative); Bilirubin Urine Negative (Negative); Blood Urine Negative (Negative); Color Urine Yellow; Epithelial Cell Urine Auto 20-30 /lpf (0-5); Glucose Urine UA Negative (Negative); Ketones Urine Negative (Negative); Leukocyte Esterase Urine 1+ (Negative); Nitrite Urine Negative (Negative); Protein Urine Negative (Negative); Urobilinogen Urine Negative (Negative)
[2021-01-28] MEDS: ATORVASTATIN 40 MG TAB PO SCH (22:04)
[2021-01-29] MEDS: ACETAMINOPHEN 325 MG TAB PO SCH ×2 (06:25→09:37)
[2021-01-29 07:53] LABS: Hematocrit (blood only) 35.1 % (37-47); Hemoglobin 11.5 g/dL (12.0-16.0); Mean Corpuscular Hemoglobin 29.2 pg (25-34); Mean Corpuscular Hgb Conc 32.8 g/dL (32-36); Mean Corpuscular Volume 89.1 fL (80-100); Mean Platelet Volume 9.5 fL (7.4-10.4); Platelet Count 214 K/uL (130-400); RDW Coefficient of Variation 13.6 % (11.5-14.5); RDW Standard Deviation 44.9 fL (36.4-46.3); Red Blood Count 3.94 M/uL (4.2-5.4); White Blood Count 6.25 K/uL (4.8-10.8)
[2021-01-29 08:25] LABS: BUN Creatinine Ratio 16.6 (10-20); Calcium 8.8 mg/dl (8.5-10.1); Creatinine Clr Calc Pharmacy 57.5 ml/min; Est GFR (African American) 78.2 ml/min; Est GFR (Non-African American) 67.5 ml/min; Potassium 4.3 mmol/L (3.5-5.1)
--- NOTE | 2021-01-29 09:11 | Orthopedic Consultation ---
Date of Service January 29, 2021 Assessment & Plan (1) Tibial plateau fracture, left: We discussed the diagnosis and treatment options at bedside. The fracture is very minimal. It is at the very posterior rim of the tibial plateau. Its not on the weightbearing surface. She can be weightbearing as tolerated with her left leg. She does not appear to have too much pain with stability testing of the knee. The knee feels to be fairly stable. She does not need the knee immobilizer if she can ambulate better without it. She will be seen by physical therapy today for ambulation. She can be full weightbearing as tolerated. If she feels more stable in the knee immobilizer, she can wear the knee immobilizer as things heal, however, if she feels more comfortable without the knee immobilizer it is not necessary. She is orthopedically stable for discharge. She can follow-up in our office in 4 weeks to evaluate her progress. Office phone number is [phone] History of Present Illness Reason for Consultation: Right knee tibial plateau fracture. Requesting Physician: . Attending Physician: Vielka Seaman MD Antonietta is a pleasant 70-year-old female who slipped and fell in her kitchen twisting her right knee. She has significant knee pain. She initially came to the emergency room and x-rays were negative. She then had a CT scan of her right knee which shows a questionable very small fracture of the posterior lateral aspect of her tibial plateau. There was also some swelling and hematoma mostly involving the medial structures. She was having difficulty ambulating so she was admitted to the hospital. She was placed in the immobilizer. Orthopedics was consulted to evaluate and treat.. Allergies Allergy/AdvReac Type Severity Reaction Status Date / Time No Known Allergies Allergy Verified 01/27/21 10:58 Home Medications Medication Instructions Recorded Confirmed Type aspirin 81 mg tablet,delayed 81 mg PO QAM 02/07/19 01/27/21 History release atenolol 25 mg tablet 25 mg PO QAM 02/07/19 01/27/21 History niacin 500 mg tablet,extended 500 mg PO HS 02/07/19 01/27/21 History release oxycodone 5 mg tablet 5 mg PO Q6H PRN #20 tab 01/26/21 01/27/21 Rx amlodipine 10 mg tablet 10 mg PO DAILY 01/27/21 01/27/21 History atorvastatin 40 mg tablet 40 mg PO PM 01/27/21 01/27/21 History diclofenac sodium 1 % topical gel 4 g TOPICAL QID PRN 01/27/21 01/27/21 History lorazepam 0.5 mg tablet 0.5 mg PO TID PRN 01/27/21 01/27/21 History pantoprazole 20 mg tablet,delayed 20 mg PO DAILY 01/27/21 01/27/21 History release sertraline 50 mg tablet 50 mg PO DAILY 01/27/21 01/27/21 History Past Med/Surg History Medical History Anxiety CKD (chronic kidney disease), stage III Depression HLD (hyperlipidemia) Hypertension LVH (left ventricular hypertrophy) Surgical History History of cholecystectomy Family History Sister Ovarian cancer Father Hypertension Social History Smoking Status: Never smoker Hx Alcohol Use: No Hx Substance Use: No Preferred Language: Luxembourgish Communication Ability: Effective 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 Physical Exam Physical examination of the left knee, the knee immobilizer was removed. She has some swelling around her left knee. There is some ecchymosis on the medial side. She has slight medial sided laxity. She has very little pain with flexion of the knee to 60 degrees. I did not flex her much past that. She is really not having too much knee pain.. Constitutional WD/WN, vitals as above Eyes PERRL, conjunctivae normal, anicteric sclerae ENMT external ear and nose normal, oropharynx normal Neck trachea midline, no thyromegaly Respiratory normal respiratory effort Cardiovascular RRR, no murmur, no edema Gastrointestinal (Abdomen) normal bowel sounds, soft, nontender, no hepatosplenomegaly Psychiatric A+Ox3, euthymic affect Results & Data Results & Data Laboratory Results . Diagnostic Findings CT scan of the left knee was reviewed. It shows a very small posterior lateral fracture of the rim of the tibial plateau. There is also some hematoma within the vastus medialis.. PG Care Time/CCT Total # of Minutes Spent Total Time Spent with Patient: Total time spent is greater than 50% in coordination of care (as documented) at patient's floor/unit and/or counseling patient: Coding Level of Care Code 35063 Inpt Consult Level 4 Diagnoses Tibial plateau fracture, left S82.142D Encounter type: subsequent encounter Fracture healing: with routine healing Fracture type: closed (1) Tibial plateau fracture, left Encounter type: subsequent encounter Fracture healing: with routine healing Fracture type: closed Qualified Code(s): S82.142D - Displaced bicondylar fracture of left tibia, subsequent encounter for closed fracture with routine healing
[2021-01-29] MEDS: PANTOprazole 40 MG TAB PO SCH (09:33)
[2021-01-29] MEDS: ATENOLOL 25 MG TABLET PO SCH (09:34)
[2021-01-29] MEDS: amLODIPine BESYLATE 5 MG TAB PO SCH (09:34)
[2021-01-29] MEDS: DOCUSATE SODIUM/SENNA 50/8.6MG TAB PO SCH (09:34)
[2021-01-29] MEDS: ASPIRIN 81 MG ECTAB PO SCH (09:34)
[2021-01-29] MEDS: SERTRALINE HCL 50 MG TABLET PO SCH (09:36)
[2021-01-29] MEDS: ENOXAPARIN INJ 40 MG/0.4 ML SYR SQ SCH (09:36)
--- NOTE | 2021-01-29 10:31 | Hospitalist Progress Note ---
Date of Service January 29, 2021 Assessment & Plan (1) Fall: (2) Tibial plateau fracture, left: Plan: Left Knee hematoma, intramuscular injury, possible tear CT Left knee: 1. Subtle slightly depressed fracture within the posterior lip of the lateral tibial plateau. 2. This likely accounts for the small lipohemarthrosis. 3. The distal component of the vastus medialis muscle appears to contain intramuscular hematoma and is ill-defined with interdigitating fat. Therefore, this suggests high-grade intramuscular tear/injury at the distal vastus medialis. However, the quadriceps tendon appears intact. 4. There is a surrounding soft tissue hematoma at the distal vastus medialis. 5. No evidence for a vascular injury. Knee immobilizer Pain controlled. Ortho recommendations appreciated Awaiting PT/OT eval for disposition (3) Lab test positive for detection of COVID-19 virus: Plan: Reports 2 doses COVID-19 Vaccine Denied any symptoms Currently on room air. D-dimer elevated. CTPA negative for PE (4) Hypertension: Plan: Continue atenolol, amlodipine (5) HLD (hyperlipidemia): Plan: Continue atorvastatin (6) CKD (chronic kidney disease), stage III: Plan: Cr: 0.88. Baseline Cr: 1.1 Monitor renal functions, avoid nephrotoxic agents when possible (7) Anxiety: Plan: Continue sertraline Hold prn lorazepam while on pain medications DVT Prophylaxis - Lovenox sq Full Code as per discussion with pt, however reports if poor prognosis would not want maintained on life support Follows with Dr Sutherland for routine care Plan: Possible dc tomorrow to home vs SNF depending on PT/OT evals Admission and Anticipated Discharge Date Admission Date: January 27, 2021 Subjective 70-year-old woman with history of hypertension, dyslipidemia, depression, CKD 3, LVH who initially presented to the ER yesterday after a fall and left knee pain. X-ray showed soft tissue swelling and effusion without noted fracture. Was disc harged home. Patient represented again on 01/27 due to difficulty ambulating, persistent pain. Found to have left tibial plateau fracture and COVID test came back positive Patient examined this morning Reports pain is is well controlled. Denies any other problems Review of Systems Constitutional: no fever, no chills and no fatigue Eyes: no problem reported Ear, Nose, Mouth, Throat: no problem reported Respiratory: no cough, no chest congestion, no dyspnea and no dyspnea on exertion Cardiovascular: no chest pain, no dyspnea, no dyspnea on exertion, no orthopnea and no palpitations Gastrointestinal: no abdominal pain, no nausea and no vomiting Genitourinary: no dysuria, no difficulty urinating and no urinary frequency Musculoskeletal: Left knee pain Neurologic: no dizziness, no headache(s) and no confusion Psychiatric: no depression and no irritability Physical Exam Constitutional: + well hydrated; no acute distress Eyes: PERRL, conjunctivae normal, anicteric sclerae ENMT: external ear and nose normal, oropharynx normal Respiratory: normal respiratory effort, lungs clear to auscultation Cardiovascular: RRR, no murmur, no edema Gastrointestinal (Abdomen): normal bowel sounds, soft, nontender, no hepatosplenomegaly Musculoskeletal: Left knee in immobilizer Neurologic: PERRL, EOMI, accommodation nl, no face palsy, no dysarthria Psychiatric: A+Ox3, euthymic affect Results & Data Results & Data ([facility]) Vital Signs (Past 12 Hours) Vital Signs Temp Pulse Resp BP Pulse Ox 01/28/21 23:27 36.5 C 67 17 118/74 94 Laboratory Results Abnormal lab results 01/27/21 01/29/21 01/29/21 Range/Units Unknown 07:14 07:14 RBC 3.94 L (4.2-5.4) M/uL Hgb 11.5 L (12.0-16.0) g/dL Hct 35.1 L (37-47) % Chloride 111 H (98-107) mmol/L Glucose 100 H (70-99) mg/dl Ur Specific [place] 1.040 H (1.000-1.030) Ur Leukocyte Esterase 1+ H (Negative) Urine WBC (Auto) 10-30 H (0-5) /hpf Urine RBC (Auto) 5-10 H (0-4) /hpf U Epithel Cells (Auto) 20-30 H (0-5) /lpf Urine Bacteria (Auto) 1+ H (Negative) (1) Tibial plateau fracture, left Encounter type: subsequent encounter Fracture healing: with routine healing Fracture type: closed Qualified Code(s): S82.142D - Displaced bicondylar fracture of left tibia, subsequent encounter for closed fracture with routine healing (2) Fall Encounter type: initial encounter Qualified Code(s): W19.XXXA - Unspecified fall, initial encounter
--- NOTE | 2021-01-29 13:36 | Discharge Summary ---
Date of Service January 29, 2021 Admission HPI Per Admitting Provider Pt is 70 y/o F With PMH HTN, dyslipidemia, depression, CKD III, LVH presented to ER with complaint of fall yesterday and left knee pain. Patient reports yesterday was scrubbing and she slipped on wet floor causing her to have a twisting injury to left leg and fall. She was seen at [facility] ER yesterday and had x-ray left knee showed soft tissue swelling and effusion without noted fracture. Patient states taking oxycodone that was prescribed to her yesterday however having continued pain and is unable to ambulate. Has been trying to use a walker at home this morning however is unable to secondary to increased pain and inability to bend knee. States left knee with ecchymosis and edema. Denies any numbness or tingling of lower extremity or foot. Patient denies hitting head or LOC with fall. She denies any other injury with fall. Patient reports had 2 doses COVID-19 vaccination in September and October 2020. She denies any cough, shortness of breath, chest pain, fever, chills, nausea, vomiting, diarrhea. She is unaware of any COVID-19 contacts. Reports grandson lives with her and had URI symptoms recently but was not tested for COVID-19. Denies BRIDGES, dizziness, syncope, vision changes, neck pain, orthopnea, palpitations, sore throat, choking, otalgia, rhinorrhea, abdominal pain, paresthesias, weakness, other extremity edema, rashes, urinary symptoms. Today in ER CT Left knee: 1. Subtle slightly depressed fracture within the posterior lip of the lateral tibial plateau. 2. This likely accounts for the small lipohemarthrosis. 3. The distal component of the vastus medialis muscle appears to contain intramuscular hematoma and is ill-defined with interdigitating fat. Therefore, this suggests high-grade intramuscular tear/injury at the distal vastus medialis. However, the quadriceps tendon appears intact. 4. There is a surrounding soft tissue hematoma at the distal vastus medialis. 5. No evidence for a vascular injury. Admission Exam Per Admitting Provider General: no distress, obese Head: normocephalic, atraumatic Eyes: PERRL, EOM's intact, conjunctiva non-injected, anicteric ENT: normal inspection external ears, nose, mucous membranes moist Neck: supple, trachea midline Lungs: clear, no respiratory distress, no wheezing/rhonchi/rales CV: RRR, no murmur, no pretibial edema Abd: normal BS, soft, non-tender Ext: LLE: +ecchymosis and edema to left knee, +tenderness to palpation entire anterior knee, no active or passive ROM tested secondary pt's increased pain and unwillingness secondary to pain, distal pulses palpable. no cyanosis, no calf tenderness Neuro: A&O x 3, no focal deficits noted, normal affect Skin: warm, dry Principal Diagnosis Left Tibial plateau fracture Positive COVID 19 test, asymptomatic Discharge Exam Constitutional + well hydrated; no acute distress Eyes PERRL, conjunctivae normal, anicteric sclerae ENMT external ear and nose normal, oropharynx normal Respiratory normal respiratory effort, lungs clear to auscultation Cardiovascular RRR, no murmur, no edema Gastrointestinal (Abdomen) normal bowel sounds, soft, nontender, no hepatosplenomegaly Musculoskeletal Left knee immobilizer on Neurologic PERRL, EOMI, accommodation nl, no face palsy, no dysarthria Psychiatric A+Ox3, euthymic affect Discharge Data Allergies Allergy/AdvReac Type Severity Reaction Status Date / Time No Known Allergies Allergy Verified 01/27/21 10:58 Consultations 01/27/21 12:35 Consult Orthopedic Surgery Stat 01/27/21 13:13 ED Decision to Admit Stat 01/27/21 21:04 Consult Orthopedic Surgery Routine Ordered Studies 01/27/21 10:30 CT angio LE LT w inc wo if don Stat There is a subtle slightly depressed fracture within the posterior lip of the lateral tibial plateau. This demonstrates 1 mm of depression. This is best seen on axial image 242. The visualized femur, patella, and fibula are intact. The lateral tibial plateau fracture likely accounts for the small lipohemarthrosis. There is subcutaneous edema seen within the anterior knee with a probable ill- defined soft tissue contusion/hematoma within the anteromedial aspect of the knee. This measures approximately 5 cm in size. The distal component of the vastus medialis muscle appears to contain intramuscular hematoma and is ill- defined with interdigitating fat. Therefore, this suggests high-grade intramuscular tear at the distal vastus medialis. However, the quadriceps tendon appears intact. The distal superficial femoral artery, popliteal artery, and visualized calf arteries are widely patent. No dissection or arterial extravasation to suggest a vascular injury. IMPRESSION: 1. Subtle slightly depressed fracture within the posterior lip of the lateral tibial plateau. 2. This likely accounts for the small lipohemarthrosis. 3. The distal component of the vastus medialis muscle appears to contain intramuscular hematoma and is ill-defined with interdigitating fat. Therefore, this suggests high-grade intramuscular tear/injury at the distal vastus medialis. However, the quadriceps tendon appears intact. 4. There is a surrounding soft tissue hematoma at the distal vastus medialis. 5. No evidence for a vascular injury. 01/27/21 19:53 CT angio chest PE protocol Urgent There is adequate opacification within main pulmonary artery. No definite pulmonary embolus is seen within main, lobar and segmental branches of the pulmonary artery however evaluation is slightly limited due to respiratory motion artifact. Main pulmonary artery is normal in caliber. Mild dilatation of the right pulmonary artery could be seen in pulmonary hypertension. No evidence of right heart strain. Four-chamber cardiomegaly seen without pericardial effusion. Questionable focal area of myocardial thinning is seen at the cardiac apex (/54) and might represent scarring. Visualized portion of thyroid gland shows no evidence of focal lesions. Mild thickening of distal esophageal wall is seen. Small hiatal hernia is demonstrated. There is no axial, supra clavicle or internal mammary lymphadenopathy seen. Slightly prominent subcarinal lymph node is seen measuring 1.0 cm in short axis. There is mild soft tissue attenuation interspersed with fat is seen within anterior mediastinum and could represent thymic remnant versus other etiology. There was no evidence of thoracic aortic dilatation. Tracheobronchial tree is patent. This study was acquired during partial expiratory phase. No infiltrates or consolidative lesions are seen. Minimal atelectasis is seen at dependent portion of the left lower lobe. No pleural effusion demonstrated. -8 mm nodule is seen at subpleural aspect of the left lower lobe (/76) No other pulmonary nodules are seen however evaluation of pulmonary parenchyma is limited due to motion artifact. Limited evaluation of upper abdominal viscera shows nonobstructive calculi within the partially visualized right and left renal pelvises (largest on the left) and nodularity of bilateral adrenal glands. Evaluation is suboptimal due to motion artifact. Osseous structures: Mild diffuse osteopenia and degenerative changes of the spine. No definite aggressive osseous lesions are seen. IMPRESSION: 1. No evidence of the pulmonary embolus within main, lobar and segmental branches of the pulmonary artery however evaluation is suboptimal due to motion artifact. No evidence of right heart strain. 2. Slightly dilated right pulmonary artery which could be seen in pulmonary hypertension. 3. Four-chamber cardiomegaly. Questionable focal thickening of myocardium at its apex which might represent sequela from prior ischemia/infarct. Please correlate above-mentioned findings with prior history and possible cardiac evaluation. Overall evaluation is suboptimal due to nongated technique. 4. No infiltrates or consolidative lesions. 5. 8 mm subpleural pulmonary nodule within left lower lobe. Follow-up evaluation in [address] of the chest on nonemergency basis is recommended per Fleischner Society guidelines. 6. Bilateral nonobstructive nephrolithiasis within partially visualized right and left kidney. Suboptimal evaluation due to nondedicated exam and motion artifact. 7. The rest of findings as above. Hospital Course (1) Fall: (2) Tibial plateau fracture, left: Left Knee hematoma, intramuscular injury, possible tear CT Left knee: 1. Subtle slightly depressed fracture within the posterior lip of the lateral tibial plateau. 2. This likely accounts for the small lipohemarthrosis. 3. The distal component of the vastus medialis muscle appears to contain intramuscular hematoma and is ill-defined with interdigitating fat. Therefore, this suggests high-grade intramuscular tear/injury at the distal vastus medialis. However, the quadriceps tendon appears intact. 4. There is a surrounding soft tissue hematoma at the distal vastus medialis. 5. No evidence for a vascular injury. Knee immobilizer Pain controlled. Ortho recommendations appreciated Discharged to [facility] with knee immobilizer and rolling walker (3) Lab test positive for detection of COVID-19 virus: Reports 2 doses COVID-19 Vaccine Denied any symptoms Currently on room air. D-dimer elevated. CTPA negative for PE CT showed pulmonary nodules. PCP to monitor (4) Hypertension: Continue atenolol, amlodipine (5) HLD (hyperlipidemia): Continue atorvastatin (6) CKD (chronic kidney disease), stage III: Cr: 0.88. Baseline Cr: 1.1 Monitor renal functions, avoid nephrotoxic agents when possible (7) Anxiety: Continue sertraline Hold prn lorazepam while on pain medications Total Time Total Time Spent Total Time Spent (In Minutes): 40 Total Time Includes: Examination of the Patient, Discharge Planning and Medication Reconciliation Discharge Plan Discharge Items Patient Disposition: Home - Home Health Services Reason For Visit: Fall Discharge Diagnosis: Fall at home Left tibial plateau fracture Positive Covid test Activity: As commented below Activity Comment: Weightbearing as tolerated with rolling walker and knee immobilizer Non-emergency contact: Primary Care Provider and Surgeon Call non-emergency contact if: you have any medication questions and your symptoms worsen Follow-up/Referrals: Karley Sutherland DO [Primary Care Provider] - (Date & Time 02/10/2021 11:10 AM Provider Karley Sutherland DO Department [facility] ) Gerardo Andersen DO [Physician] - 03/03/21 1:30 pm ([facility] [address]; [address] [place] [address] Ph: [phone]) Diet: Heart Healthy Addyuki Attending Provider Instructions: Mrs. Peters. You came to the hospital after a fall at home with worsening left knee pain. You were evaluated and found to have a left tibial plateau fracture. You were e valuated by orthopedic surgeon and did not require any surgery. Please continue to use the knee immobilizer. You can bear weight as tolerated and use your rolling walker. You can follow-up with orthopedic surgeon in the office in 4 weeks. Please call the office number [phone]. Please use Tylenol for pain management. Only use the oxycodone previously prescribed by the ER for severe pain not controlled by Tylenol. You tested positive for COVID-19. However, you do not have any symptoms. Please observe home isolation as we discussed. Please seek medical care if you develop any COVID-19 symptoms as we discussed. It was a pleasure taking care of you Addtl Framer Provider Instructions: Home Isolation COVID-19 Instructions The following information about Home Isolation is from the CDC Website: https://www.cdc.gov/coronavirus/2019-ncov/hcp/zdfjrjcz-upjtyxr-ftxrpe.html Stay home except to get medical care People who are mildly ill with COVID-19 are able to isolate at home during their illness. You should restrict activities outside your home, except for getting medical care. Do not go to work, school, or public areas. Avoid using public transportation, ride-sharing, or taxis. Separate yourself from other people and animals in your home People: As much as possible, you should stay in a specific room and away from other people in your home. Also, you should use a separate bathroom, if available. Animals: You should restrict contact with pets and other animals while you are sick with COVID-19, just like you would around other people. Although there have not been reports of pets or other animals becoming sick with COVID-19, it is still recommended that people sick with COVID-19 limit contact with animals until more information is known about the virus. When possible, have another member of your household care for your animals while you are sick. If you are sick with COVID-19, avoid contact with your pet, including petting, snuggling, being kissed or licked, and sharing food. If you must care for your pet or be around animals while you are sick, wash your hands before and after you interact with pets and wear a face mask. Call ahead before visiting your doctor If you have a medical appointment, call the healthcare provider and tell them that you have or may have COVID-19. This will help the healthcare providers office take steps to keep other people from getting infected or exposed. Wear a face mask You should wear a face mask when you are around other people (e.g., sharing a room or vehicle) or pets and before you enter a healthcare providers office. If you are not able to wear a face mask (for example, because it causes trouble breathing), then people who live with you should not stay in the same room with you, or they should wear a face mask if they enter your room. Cover your coughs and sneezes Cover your mouth and nose with a tissue when you cough or sneeze. Throw used tissues in a lined trash can. Immediately wash your hands with soap and water for at least 20 seconds or, if soap and water are not available, clean your hands with an alcohol-based hand squeegeer and former that contains at least 60% alcohol. Clean your hands often Wash your hands often with soap and water for at least 20 seconds, especially after blowing your nose, coughing, or sneezing; going to the bathroom; and before eating or preparing food. If soap and water are not readily available, use an alcohol-based hand squeegeer and former with at least 60% alcohol, covering all surfaces of your hands and rubbing them together until they feel dry. Soap and water are the best option if hands are visibly dirty. Avoid touching your eyes, nose, and mouth with unwashed hands. Avoid sharing personal household items You should not share dishes, drinking glasses, cups, eating utensils, towels, or bedding with other people or pets in your home. After using these items, they should be washed thoroughly with soap and water. Clean all high-touch surfaces everyday High touch surfaces include counters, tabletops, doorknobs, bathroom fixtures, toilets, phones, keyboards, tablets, and bedside tables. Also, clean any surfaces that may have blood, stool, or body fluids on them. Use a household cleaning spray or wipe, according to the label instructions. Labels contain instructions for safe and effective use of the cleaning product including precautions you should take when applying the product, such as wearing gloves and making sure you have good ventilation during use of the product. Monitor your symptoms Seek prompt medical attention if your illness is worsening (e.g., difficulty breathing).Beforeseeking care, call your healthcare provider and tell them that you have, or are being evaluated for, COVID-19. Put on a face mask before you enter the facility. These steps will help the healthcare providers office to keep other people in the office or waiting room from getting infected or exposed. Ask your healthcare provider to call the local or state health department. Persons who are placed under active monitoring or facilitated self- monitoring should follow instructions provided by their local health department or occupational health professionals, as appropriate. When working with your local health department check their available hours. If you have a medical emergency and need to call 911, notify the dispatch personnel that you have, or are being evaluated for COVID-19. If possible, put on a face mask before emergency medical services arrive. Discontinuing home isolation Patients with confirmed COVID-19 should remain under home isolation precautions until the risk of secondary transmission to others is thought to be low. The decision to discontinue home isolation precautions should be made on a [id number] basis, in consultation with healthcare providers and state and local health departments. Pending Studies at Discharge: No Stand-Alone Forms: My [facility], Smoking Cessation Medications and DC Order Prescriptions: Continued atenolol 25 mg tablet 25 mg PO QAM RF: 0 aspirin 81 mg Tablet,Delayed Release (Dr/Ec) 81 mg PO QAM RF: 0 niacin 500 mg Tablet Extended Release 500 mg PO HS RF: 0 oxycodone 5 mg tablet 5 mg PO Q6H PRN (Reason: pain) Qty: 20 RF: 0 atorvastatin 40 mg tablet 40 mg PO PM RF: 0 pantoprazole 20 mg tablet,delayed release (DR/EC) 20 mg PO DAILY RF: 0 lorazepam 0.5 mg tablet 0.5 mg PO TID PRN (Reason: Anxiety) RF: 0 amlodipine 10 mg tablet 10 mg PO DAILY RF: 0 sertraline 50 mg tablet 50 mg PO DAILY RF: 0 diclofenac sodium 1 % gel 4 g TOPICAL QID PRN (Reason: Pain) RF: 0 Discharge Orders: Discharge Order (Routine); Ordered 01/29/21 Ordered By: Vielka Seaman Admission Data Admit Date/Time: 01/27/21 14:13 Attending Provider: Vielka Seaman I. Admit Provider: Vielka Seaman I. Primary Care Provider: Karley Sutherland Other Providers: Gerardo Andersen Robin A. Other Interventions: Discharge Summary Assessment (RN) Last Done: 01/29/21 13:53
== END 2021-01-29 15:30 | disposition home health service (06) | DRG 562 ==
LOC: ED 10:22 → 2S 14:13
DX: X58.XXXA Exposure to other specified factors, initial encounter; E78.5 Hyperlipidemia, unspecified; S82.142A Displaced bicondylar fracture of left tibia, initial encounter for closed fracture; U07.1 COVID-19; Y92.009 Unspecified place in unspecified non-institutional (private) residence as the place of occurrence of the external cause; I12.9 Hypertensive chronic kidney disease with stage 1 through stage 4 chronic kidney disease, or unspecified chronic kidney disease; N18.30 Chronic kidney disease, stage 3 unspecified